=== PATIENT | female | born 1985 | race Caucasian/White ===

== ENCOUNTER 2020-08-23 10:32 | Emergency (ER) | payer OTHER, SELFPAY ==
[2020-08-23 11:44] VITALS: BP 122/72; PULSE 70; RESP 16; TEMP 37.3; O2SAT 99; BMI 29.2
[2020-08-23] MEDS: 0.9 % Sodium Chloride 1,000 ML 999 ML IVCONT ×2 (12:02→13:48)
[2020-08-23 12:11] LABS: MANUAL DIFF FLAG NO
[2020-08-23 12:15] LABS: Basophils Percent Auto 0.2 % (0-2); Eosinophils Percent Auto 0.1 % (0-4); Hematocrit 41.3 % (37-47); Hemoglobin 13.4 g/dl (12.0-16.0); Imm Gran Abs Auto 0.06 X10*3/uL (0.00-0.03); Imm Gran Pct Auto 0.5 % (0.0-0.4); Lymphocytes Absolute Auto 1.3 X10*3/uL (1.2-4.9); Lymphocytes Percent Auto 9.9 % (20-40); Mean Corpuscular HGB Conc 32.4 g/dl (31.0-35.0); Mean Corpuscular Hemoglobin 28.5 pg (27.0-33.0); Mean Corpuscular Volume 87.7 fL (80-98); Mean Platelet Volume 11.3 fL (9.4-12.3); Monocytes Absolute Auto 0.7 X10*3/uL (0.1-1.2); Monocytes Percent Auto 5.3 % (2-11); Neutrophils Absolute Auto 11.1 X10*3/uL (2.0-8.3); Platelet Count 270 X10*3/uL (160-400); Red Blood Count 4.71 X10*6/uL (4.20-5.50); Red Cell Distribution Width 14.1 % (11.0-16.0); White Blood Count 13.2 X10*3/uL (4.8-10.8)
[2020-08-23 12:40] LABS: Alanine Aminotransferase 12 U/L (0-31); Albumin Level 4.6 g/dL (3.5-5.0); Alkaline Phosphatase 43 U/L (39-117); Anion Gap 14 (12-20); Aspartate Amino Transferase 14 U/L (5-31); Bilirubin Direct 0.2 mg/dL (0.0-0.5); Bilirubin Total 0.5 mg/dL (0.0-1.0); Carbon Dioxide 25 mmol/L (22-29); Chloride 104 mmol/L (96-108); Creatinine Clr Calc Pharmacy 96.6; Estimated Glomerular Filt Rate > 60; Glucose Random 85 mg/dL (60-115); Lipase 21 U/L (8-78); Magnesium 2.2 mg/dL (1.6-2.6); Potassium 4.3 mmol/L (3.3-5.1); Sodium 139 mmol/L (135-145); Total Protein 7.1 g/dL (6.5-8.0)
--- NOTE | 2020-08-23 12:54 | ED_ITS ---
HPI - Nausea/Vomiting/Diarrhea General Chief complaint: Nausea/Vomiting/Diarrhea Stated complaint: dehydration? Time Seen by Provider: 08/23/20 11:28 Source: patient Mode of arrival: ambulatory Limitations: no limitations History of Present Illness HPI Narrative: 34 y/o female presenitng with nausea and vomiting for the last 2 days. She states her stomach started to feel off on Good Friday after she ate some fish and lobster. She had a poor appetitie over the weekend and then went to [facility] on Friday and ate a large meal. Since then she has not been able to tolerate anything by mouth, even water. She had a normal BM yesterday. She has some generalized upper abdominal discomfort when she is vomiting but no abdominal pain at rest. She denies blood on her vomitus, fever, chills, chest pain or SOB. She gets diaphoretic prior to vomiting. She states her LMP was end of June and there is a chance she could be . No vaginal bleeding or cramping. MD elicited complaint: nausea and vomiting Onset (ago): day(s) (2) Description of vomiting: food contents, watery and bilious Associated nausea: Yes Associated abdominal pain: Yes Location of pain: diffuse Pain consistency: intermittent Severity: mild Quality: aching Exacerbating factors: eating Relieving factors: vomiting Context: possible food poisoning Associated symptoms: diaphoresis, headaches, loss of appetite, malaise, nausea/vomiting and weakness Related Data Previous Rx's Medication Instructions Recorded cephalexin 500 mg PO TID 7 Days #21 cap 08/23/20 ondansetron 4 mg PO Q6H PRN #14 tab 08/23/20 Allergies Allergy/AdvReac Type Severity Reaction Status Date / Time No Known Allergies Allergy Unverified 02/03/20 15:28 [No Known Allergies*] Review of Systems Review of Systems: Constitutional: No Fever, No Chills ENT/Mouth: No sore throat, No Rhinorrhea, No Swallowing Difficulty Cardiovascular: No Chest Pain, No SOB, No Orthopnea, No Edema Respiratory: No Cough, No Sputum, No Wheezing, No dyspnea Gastrointestinal: + Nausea, + Vomiting, No Diarrhea, +abdominal Pain, No Hematochezia, No Melena Genitourinary: No Dysuria, No Urinary Frequency, No Hematuria Musculoskeletal: No joint pain, No Myalgias Skin: No Skin Lesions, No rash Neuro: + Weakness, No Numbness, No Dizziness, + Headache Psych: No Anxiety/Panic, No Depression Heme/Lymph: No Bruising, No Lymphadenopathy Endocrine: No Polyuria, No Polydipsia Gastrointestinal: Gastrointestinal: Reports nausea PMFSH Past Medical History Attestation statement: The following information was validated with the patient. Medical History Anxiety Surgical History (Updated 08/23/20 @ 11:49 by Sydni Ortega) H/O endoscopy History of biopsy Social History Social History Alcohol intake: never Smoking Status: Never smoker Last Used Substance: Hours (ago) Advance Directives: Yes Advance Directives Information Provided: No Advance Directives on File: No Physical Exam Vital Signs: Vital Signs: Last Vital Signs Temp 98.7 F 08/23/20 14:54 Pulse 76 08/23/20 14:54 Resp 18 08/23/20 14:54 BP 107/69 08/23/20 14:54 Pulse Ox 99 08/23/20 14:54 Body Mass Index 29.2 Appearance: Alert. Oriented X3. No acute distress. Eyes: Pupils equal, round and reactive to light. ENT: Pharynx normal. Neck: Normal inspection. Neck supple. CVS: Normal heart rate and rhythm. Pulses normal. Respiratory: No respiratory distress. Breath sounds normal. Abdomen: Obese, Soft with mild tenderness of epigastric areas to deep palpation. no rebound or guarding. +BS x4 Skin: Skin warm and dry. Normal skin color. Normal skin turgor. No rashes. Extremities: No lower extremity edema. Neuro: Oriented X 3. No motor deficit. No sensory deficit. Course Course Course Narrative: 34 y/o female presenting with N/V x2 days. Mild upper abdominal discomfort with vomiting but exam is reassuring. VS are within normal limits. Will hydrate and give IV zofran now for continued nausea. Will check test and labs to assess for metabolic derangements. Reevaluation(s) Reevaluation #1: Labs are reassuring. Mild leukocytosis, likely reactive from vomiting. Starting to feel better after IVF and zofran. Quant HCG is positive, consistent with 6-7 weeks gestation. She has no lower abdominal pain or vaginal bleeding. Will hold off on TV U/S at this time. Reevaluation #2: UA + for infection. Will treat with Keflex while awaiting culture. She is tolerting PO and is stable for d/c with antiemetics and antibiotics. She will follow up with her OB week and start taking vitamins. She was encouraged to come back to the ER if she develops lwoer abdominal pain, cramping vaginal bleeding or persistent vomiting. Patient agreeable with plan. MDM - Nausea/Vomiting/Diarrhea Lab Data Result diagrams: 08/23/20 12:08 08/23/20 12:08 Labs: Lab Results 08/23/20 08/23/20 08/23/20 Range/Units 12:08 12:08 15:08 WBC 13.2 H (4.8-10.8) X10*3/uL RBC 4.71 (4.20-5.50) X10*6/uL Hgb 13.4 (12.0-16.0) g/dl Hct 41.3 (37-47) % MCV 87.7 (80-98) fL MCH 28.5 (27.0-33.0) pg MCHC 32.4 (31.0-35.0) g/dl RDW 14.1 (11.0-16.0) % Plt Count 270 (160-400) X10*3/uL MPV 11.3 (9.4-12.3) fL Immature Gran % (Auto) 0.5 H (0.0-0.4) % Neut % (Auto) 84.0 H (45-73) % Lymph % (Auto) 9.9 L (20-40) % [place] % (Auto) 5.3 (2-11) % Eos % (Auto) 0.1 (0-4) % Baso % (Auto) 0.2 (0-2) % Lymph # (Auto) 1.3 (1.2-4.9) X10*3/uL [place] # (Auto) 0.7 (0.1-1.2) X10*3/uL Eos # (Auto) 0.0 (0.0-0.4) X10*3/uL Baso # (Auto) 0.0 (0.0-0.2) X10*3/uL Abs Immat Gran (auto) 0.06 H (0.00-0.03) X10*3/uL Absolute Neuts (auto) 11.1 H (2.0-8.3) X10*3/uL Absolute Nucleated RBC 0.000 (0.0-0.012) X10*3/uL Nucleated RBC % (auto) 0.0 (0.0-0.2) /100WBC Sodium 139 (135-145) mmol/L Potassium 4.3 (3.3-5.1) mmol/L Chloride 104 (96-108) mmol/L Carbon Dioxide 25 (22-29) mmol/L Anion Gap 14 (12-20) Creatinine 0.67 (0.5-1.4) mg/dL Estim Creat Clear Calc 96.6 Estimated GFR > 60 Random Glucose 85 (60-115) mg/dL Magnesium 2.2 (1.6-2.6) mg/dL Total Bilirubin 0.5 (0.0-1.0) mg/dL Direct Bilirubin 0.2 (0.0-0.5) mg/dL AST 14 (5-31) U/L ALT 12 (0-31) U/L Alkaline Phosphatase 43 (39-117) U/L Total Protein 7.1 (6.5-8.0) g/dL Albumin 4.6 (3.5-5.0) g/dL Lipase 21 (8-78) U/L Beta HCG, Quant 44412 mIU/mL Urine Color YELLOW Urine Appearance HAZY Urine pH 6.5 (5.0-8.0) Ur Specific [place] >= 1.030 H (1.005-1.025) Urine Protein TRACE (NEG-TRACE) MG/DL Urine Glucose (UA) NEG (NEG) MG/DL Urine Ketones >=80 (NEG) MG/DL Urine Blood 2+ H (NEG) Urine Nitrite NEG (NEG) Ur Leukocyte Esterase TRACE H (NEG) Urine RBC 30-49 H (0) /HPF Urine WBC 5-9 H (0-4) /HPF Ur Squamous Epith Cells 4+ /LPF Urine Bacteria 1+ /LPF Urine Test (NEGATIVE) 08/23/20 Range/Units 15:08 WBC (4.8-10.8) X10*3/uL RBC (4.20-5.50) X10*6/uL Hgb (12.0-16.0) g/dl Hct (37-47) % MCV (80-98) fL MCH (27.0-33.0) pg MCHC (31.0-35.0) g/dl RDW (11.0-16.0) % Plt Count (160-400) X10*3/uL MPV (9.4-12.3) fL Immature Gran % (Auto) (0.0-0.4) % Neut % (Auto) (45-73) % Lymph % (Auto) (20-40) % [place] % (Auto) (2-11) % Eos % (Auto) (0-4) % Baso % (Auto) (0-2) % Lymph # (Auto) (1.2-4.9) X10*3/uL [place] # (Auto) (0.1-1.2) X10*3/uL Eos # (Auto) (0.0-0.4) X10*3/uL Baso # (Auto) (0.0-0.2) X10*3/uL Abs Immat Gran (auto) (0.00-0.03) X10*3/uL Absolute Neuts (auto) (2.0-8.3) X10*3/uL Absolute Nucleated RBC (0.0-0.012) X10*3/uL Nucleated RBC % (auto) (0.0-0.2) /100WBC Sodium (135-145) mmol/L Potassium (3.3-5.1) mmol/L Chloride (96-108) mmol/L Carbon Dioxide (22-29) mmol/L Anion Gap (12-20) Creatinine (0.5-1.4) mg/dL Estim Creat Clear Calc Estimated GFR Random Glucose (60-115) mg/dL Magnesium (1.6-2.6) mg/dL Total Bilirubin (0.0-1.0) mg/dL Direct Bilirubin (0.0-0.5) mg/dL AST (5-31) U/L ALT (0-31) U/L Alkaline Phosphatase (39-117) U/L Total Protein (6.5-8.0) g/dL Albumin (3.5-5.0) g/dL Lipase (8-78) U/L Beta HCG, Quant mIU/mL Urine Color Urine Appearance Urine pH (5.0-8.0) Ur Specific [place] (1.005-1.025) Urine Protein (NEG-TRACE) MG/DL Urine Glucose (UA) (NEG) MG/DL Urine Ketones (NEG) MG/DL Urine Blood (NEG) Urine Nitrite (NEG) Ur Leukocyte Esterase (NEG) Urine RBC (0) /HPF Urine WBC (0-4) /HPF Ur Squamous Epith Cells /LPF Urine Bacteria /LPF Urine Test POSITIVE H (NEGATIVE) Discharge Plan Discharge Clinical Impression: Qualifiers: Weeks of gestation: less than 8 weeks Qualified Code(s): Z3A.01 - Less than 8 weeks gestation of UTI (urinary tract infection) Qualifiers: Urinary tract infection type: acute cystitis Hematuria presence: with hematuria Qualified Code(s): N30.01 - Acute cystitis with hematuria Patient Disposition: Home, Self-Care Instructions: (ED), Urinary Tract Infection in (ED) Additional Instructions: Your blood work showed you are - likely 6 to 7 weeks along. Your urine test showed signs of infection, so you are being started on an antibiotic until the culture returns. Stick to a bland diet. Try eating a saltine cracker before getting out of bed in the morning. Recommend taking Unisom (found over the counter) every night before bed. Take prescribed Zofran as needed for vomiting. Follow up with your OB this week. Start taking a vitamin. If you develop lower abdominal cramping, vaginal bleeding, or persistent vomiting come back to the ER for further evaluation. Prescriptions: New ondansetron 4 mg tablet,disintegrating 4 mg PO Q6H PRN (Reason: nausea and vomiting) Qty: 14 RF: 0 cephalexin 500 mg capsule 500 mg PO TID 7 Days Qty: 21 RF: 0
[2020-08-23] MEDS: ondansetron HCL 4 MG/2 ML VIAL IVPUSH (13:49)
[2020-08-23 13:51] VITALS: BP 106/67; PULSE 73; RESP 16; O2SAT 100
[2020-08-23 14:51] LABS: HCG Quantitative 30446 mIU/mL
[2020-08-23 14:54] VITALS: BP 107/69; PULSE 76; RESP 18; TEMP 37.1; O2SAT 99
[2020-08-23 15:22] LABS: Glucose Urine UA NEG (NEG); Leukocyte Esterase Urine TRACE (NEG); Nitrite Urine NEG (NEG); PH 6.5 (5.0-8.0); Specific Gravity - Urine >= 1.030 (1.005-1.025); UACC Culture Trigger YES; Urine Blood 2+ (NEG); Urine Ketones >=80 MG/DL (NEG); Urine Protein TRACE MG/DL (NEG-TRACE)
[2020-08-23 15:23] LABS: Appearance Urine HAZY; Color Urine YELLOW
[2020-08-23 15:26] LABS: UPreg QC Valid YES; Urine Pregnancy POSITIVE (NEGATIVE)
[2020-08-23 15:32] LABS: RBC Urine 30-49 /HPF (0)
[2020-08-23 15:33] LABS: Bacteria Urine 1+ /LPF; Squamous Epithelial Cell Urine 4+ /LPF
--- NOTE | 2020-08-23 15:45 | PC.NURSE ---
tolerating po well.
[2020-08-23 15:59] VITALS: BP 109/65; PULSE 86; RESP 18; TEMP 37.1; O2SAT 99
[2020-08-23 16:48] LABS: Blood Urea Nitrogen 11 mg/dL (9-16); Calcium 9.2 mg/dL (8.4-10.2)
== END 2020-08-23 16:18 | disposition home or self-care (01) ==
PROVIDERS: Physician Assistant; Emergency Provider Emergency Medicine Emergency Medical Services; PCP Internal Medicine
DX: O23.11 Infections of bladder in pregnancy, first trimester (principal); N30.01 Acute cystitis with hematuria; O09.521 Supervision of elderly multigravida, first trimester; Z3A.01 Less than 8 weeks gestation of pregnancy
CPT/HCPCS: 36415; 80048; 80076; 81001; 81003; 81025; 83690; 83735; 84702; 85025; 87086; 96360; 96361; 96374; 99284; 99285; J2405

== ENCOUNTER 2021-11-28 12:18 | Emergency (ER) | payer OTHER, SELFPAY ==
[2021-11-28 12:55] VITALS: BP 111/76; PULSE 82; RESP 16; TEMP 36.6; O2SAT 98; BMI 27.2
[2021-11-28 13:10] LABS: MANUAL DIFF FLAG NO
[2021-11-28 13:12] LABS: Appearance Urine HAZY; Color Urine YELLOW; Glucose Urine UA NEG (NEG); Leukocyte Esterase Urine NEG (NEG); Nitrite Urine NEG (NEG); PH 5.5 (5.0-8.0); Specific Gravity - Urine >= 1.030 (1.005-1.025); UACC Culture Trigger NO; Urine Blood 3+ (NEG); Urine Ketones >=80 MG/DL (NEG); Urine Protein TRACE MG/DL (NEG-TRACE)
[2021-11-28 13:13] LABS: Basophils Absolute Auto 0.1 X10*3/uL (0.0-0.2); Basophils Percent Auto 0.5 % (0-2); Eosinophils Absolute Auto 0.1 X10*3/uL (0.0-0.4); Eosinophils Percent Auto 0.5 % (0-4); Hematocrit 39.3 % (37.0-47.0); Hemoglobin 13.3 g/dl (12.0-16.0); Imm Gran Pct Auto 0.7 % (0.0-0.4); Lymphocytes Absolute Auto 1.8 X10*3/uL (1.2-4.9); Lymphocytes Percent Auto 12.4 % (20-40); Mean Corpuscular HGB Conc 33.8 g/dl (31.0-35.0); Mean Corpuscular Hemoglobin 28.6 pg (27.0-33.0); Mean Corpuscular Volume 84.5 fL (80.0-98.0); Mean Platelet Volume 10.6 fL (9.4-12.3); Monocytes Percent Auto 6.6 % (2-11); Neutrophils Absolute Auto 11.6 x10*3/uL (2.0-8.3); Neutrophils Percent Auto 79.3 % (45-73); Platelet Count 298 X10*3/uL (160-400); Red Blood Count 4.65 X10*6/uL (4.20-5.50); Red Cell Distribution Width 13.7 % (11.0-16.0); White Blood Count 14.6 X10*3/uL (4.8-10.8)
[2021-11-28 13:21] LABS: Squamous Epithelial Cell Urine 2+ /LPF
[2021-11-28 13:22] LABS: Bacteria Urine 1+ /LPF
[2021-11-28 13:23] LABS: WBC Urine 0-2 /HPF (0-4)
[2021-11-28 13:30] LABS: Anion Gap 14 (12-20); Blood Urea Nitrogen 12 mg/dL (9-16); Calcium 9.1 mg/dL (8.4-10.2); Carbon Dioxide 22 mmol/L (22-29); Chloride 102 mmol/L (96-108); Creatinine Clr Calc Pharmacy 82.8; Estimated Glomerular Filt Rate > 60; Glucose Random 184 mg/dL (60-115); Potassium 3.6 mmol/L (3.3-5.1); Sodium 134 mmol/L (135-145)
[2021-11-28 15:16] LABS: HCG Quantitative 51366 mIU/mL
== END 2021-11-28 18:29 | disposition left against medical advice (07) ==
PROVIDERS: Emergency Medicine; Emergency Provider Emergency Medicine; PCP Internal Medicine
DX: O21.9 Vomiting of pregnancy, unspecified (principal); Z3A.12 12 weeks gestation of pregnancy
CPT/HCPCS: 36415; 80048; 81001; 84702; 85025; 99282; 99283

== ENCOUNTER 2022-10-21 09:28 | Emergency (ER) | payer OTHER, SELFPAY ==
[2022-10-21 10:15] VITALS: BP 125/77; PULSE 76; RESP 16; TEMP 36.2; O2SAT 98; BMI 33.8
[2022-10-21 10:49] LABS: MANUAL DIFF FLAG NO
[2022-10-21 10:57] LABS: Basophils Absolute Auto 0.1 X10*3/uL (0.0-0.2); Basophils Percent Auto 0.8 % (0-2); Eosinophils Absolute Auto 0.2 X10*3/uL (0.0-0.4); Eosinophils Percent Auto 1.7 % (0-4); Hematocrit 43.1 % (37.0-47.0); Imm Gran Abs Auto 0.08 X10*3/uL (0.00-0.03); Imm Gran Pct Auto 0.7 % (0.0-0.4); Lymphocytes Absolute Auto 2.2 X10*3/uL (1.2-4.9); Lymphocytes Percent Auto 18.9 % (20-40); Mean Corpuscular HGB Conc 32.5 g/dl (31.0-35.0); Mean Corpuscular Hemoglobin 27.3 pg (27.0-33.0); Mean Platelet Volume 11.5 fL (9.4-12.3); Monocytes Absolute Auto 0.8 X10*3/uL (0.1-1.2); Monocytes Percent Auto 6.9 % (2-11); Neutrophils Absolute Auto 8.1 x10*3/uL (2.0-8.3); Platelet Count 302 X10*3/uL (160-400); Red Blood Count 5.13 X10*6/uL (4.20-5.50); White Blood Count 11.4 X10*3/uL (4.8-10.8)
[2022-10-21 11:00] LABS: Appearance Urine Cloudy; Color Urine Yellow; Glucose Urine UA Negative (Negative); Leukocyte Esterase Urine Moderate (2+) (Negative); Nitrite Urine Negative (Negative); PH 5.5 (5.0-9.0); UMIC TRIGGER UACC YES; Urine Blood Moderate (2+) (Negative); Urine Ketones Negative (Negative); Urine Protein Negative (Neg-Trace)
[2022-10-21 11:01] LABS: UPreg QC Valid YES; Urine Pregnancy NEGATIVE (NEGATIVE)
[2022-10-21 11:09] LABS: Alanine Aminotransferase 17 U/L (0-31); Albumin Level 4.2 g/dL (3.5-5.0); Alkaline Phosphatase 68 U/L (39-117); Anion Gap 11 (12-20); Aspartate Amino Transferase 17 U/L (5-31); Bilirubin Direct 0.1 mg/dL (0.0-0.5); Bilirubin Total 0.4 mg/dL (0.0-1.0); Blood Urea Nitrogen 10 mg/dL (9-16); Carbon Dioxide 24 mmol/L (22-29); Chloride 111 mmol/L (96-108); Creatinine Clr Calc Pharmacy 92.8; Estimated Glomerular Filt Rate > 60; Glucose Random 97 mg/dL (60-115); Lipase 26 U/L (8-78); Potassium 4.8 mmol/L (3.3-5.1); Sodium 141 mmol/L (135-145); Total Protein 6.8 g/dL (6.5-8.0)
[2022-10-21 11:39] LABS: Bacteria Urine 4+ (None Seen); Hyaline Casts Urine 0-2 /LPF (0-2); UACC Culture Trigger YES
== END 2022-10-21 19:27 | disposition left against medical advice (07) ==
PROVIDERS: Emergency Provider Emergency Medicine
DX: R10.12 Left upper quadrant pain (principal)
CPT/HCPCS: 36415; 80048; 80076; 81001; 81003; 81025; 83690; 85025; 87086; 99282; 99283

== ENCOUNTER 2025-04-27 13:07 | Emergency (ER) | payer OTHER, SELFPAY ==
--- NOTE | ~2025-04-27 | US_ITS ---
EXAMINATION: US RETROPERITONEAL LIMITED (RENAL ONLY) CLINICAL INFORMATION: Flank pain bilateral, hematuria. COMPARISON: CT exam of 10/07/2017. TECHNIQUE: Real-time imaging of the kidneys. FINDINGS: RIGHT KIDNEY: 9.4 x 4.2 x 4.1 cm (SAG x AP x TRV). The kidney is normal in size, contour, and echogenicity. Renal cortical thickness is normal. No calculi or suspicious focal parenchymal lesions. No hydronephrosis. Midpole tiny cyst with posterior calcification measuring 5 x 3 x 5 mm. LEFT KIDNEY: 11.5 x 5.0 x 5.0 cm (SAG x AP x TRV). The kidney is normal in size, contour, and echogenicity. Renal cortical thickness is normal. No calculi or focal parenchymal lesions. No hydronephrosis. US/US renal BI IMPRESSION: No hydronephrosis, mass, or calculus of either kidney. Electronically signed by: Jose Maria Gordon MD 04/27/2025 02:08 PM MICHELLE
--- NOTE | ~2025-04-27 | XR_ITS ---
CLINICAL HISTORY: L LOWER L-S TENDERNESS 3 views lumbar spine Comparison: None provided Findings: Normal vertebral body alignment. No acute fractures or dislocation. No significant degenerative change. IMPRESSION: No acute findings. This document has been electronically signed by: Kristin Rooney MD on 04/27/2025 18:07:10
--- NOTE | ~2025-04-27 | XR_ITS ---
CLINICAL HISTORY: L flank pain 1 view abdomen Comparison: None provided Findings: Nonobstructive bowel gas pattern. No abnormal calcifications. No acute fractures. IMPRESSION: Nonobstructive bowel gas pattern. This document has been electronically signed by: Kristin Rooney MD on 04/27/2025 18:05:06
[2025-04-27 13:14] VITALS: BP 125/76; PULSE 82; RESP 20; TEMP 36.2; O2SAT 97; BMI 30.8
--- NOTE | 2025-04-27 13:14 | ED_ITS ---
HPI - General Adult General Chief complaint: Abdominal Pain Stated complaint: General Medical Time Seen by Provider: 04/27/25 16:24 History of Present Illness ED Provider: Marco Antonio Morris MD HPI narrative: Mandy is 39 years old she complains of several weeks left low back lumbosacral region pain now of the past few days radiating to the left lower quadrant no burning dysuria but feels there was blood in the urine on urine dip a PCP office. No history of kidney stones denies sudden onset or severe thunderclap pain or heavy vaginal bleeding. No diarrhea no prior surgical or significant gynecologic tested Related Data Previous Rx's ?Medication ?Instructions ?Recorded cephalexin 500 mg capsule 500 mg PO TID 7 days #21 cap s 08/23/20 ondansetron 4 mg disintegrating 4 mg PO Q6H PRN nausea and 08/23/20 tablet vomiting #14 tabs Allergies Allergy/AdvReac Type Severity Reaction Status Date / Time No Known Allergies (No Known Allergy Verified 04/27/25 13:17 Allergies*) [facility] Past Medical History Medical History Anxiety Surgical History (Updated 08/23/20 @ 11:49 by Sydni Ortega) History of biopsy H/O endoscopy Social History Social History Alcohol intake: never Smoked in Last 30 Days: No Use of substances other than those prescribed or required for medical reasons: Yes Substance Use Type: Marijuana Substance Use Frequency: Chronic Longstanding Advance Directives: No Advance Directives Information Provided: No Do you have a plan to hurt others: No Plan Patient : No Physical Exam ED Exam Exam: EXAM: Gen: Alert, awake, well appearing, well hydrated. Head: Atraumatic Eyes: Anicteric, Normal conjunctiva. ENT: Moist mucosa, no pallor. ? Neck: Supple. Skin: ?No observable rash or bruising on exposed or examined skin Respiratory: Breathing comfortably, No distress.Clear to auscultation bilaterally, symmetric chest expansion, No wheeze, rales, ronchi. Cardiovascular: Regular rate and rhythm. No murmurs or rub. Well perfused periphery, warm extremities. No edema. ? Abdominal: No focal tenderness. Soft, no objective distension. No palpable masses or obvious organomegaly. ?No guarding, no rebound tenderness or other peritoneal findings. : No flank tenderness. Neuro: Alert. Gross movement of all extremities intact. ? Psych: Calm. Cooperative. MSK: Mild lumbosacral tenderness no bruising Vital signs: See flowsheet Vital Signs: Vital Signs - 24 hr 04/27/25 16:51 04/27/25 18:43 Temperature 98.8 F 98.8 F Pulse Rate 86 86 Respiratory Rate 16 16 Blood Pressure 129/81 129/81 Pulse Oximetry 99 99 Oxygen Delivery Method Room Air Room Air BMI result Body Mass Index 30.8 Course Course Course Narrative: This is an RME: Additional HPI, ROS, PE not included below will be deferred to primary provider. RME assessment and note performed by: Maria Guadalupe Aragon PA-C This is a 80-oclg-cak-female, with a hx of anxiety, interstitial cystitis, who presents to the ER with a complaint of nausea and left sided flank pain. Also endorsing hematuria on urine dipstick. Endorsing urinary frequency - however reports this is chronic for her from her IC. No hx of kidney stones Plan: Labs, UA, renal US Medications Administered Discontinued Medications Generic Name Dose Route Start Last Admin Trade Name Freq PRN Reason Stop Dose Admin Sodium Chloride 1,000 mls @ 999 mls/hr 04/27/25 17:15 04/27/25 18:42 Ns IV 04/27/25 18:15 Infused .Q1H1M BRIGIDA Infusion Ketorolac Tromethamine 15 mg 04/27/25 17:13 04/27/25 17:45 Ketorolac Tromethamine 15 Mg/Ml Vial IVPUSH 04/27/25 17:14 15 mg ONCE ONE Administration Procedures Procedure Narrative Procedure Narrative: EMERGENCY ULTLRASOUND INTERPRETATION-Limited pelvic [This study was ordered, performed, and interpreted by myself. The study reveals: Impression: Unremarkable non uterus [Indication: Uterus: Normal-appearing endometrial stripe. Perhaps trace pelvic fluid Free Fluid: Trace Adnexa: No large or prominent adnexal masses Quant HCG: Negative Performed by: Marco Antonio Morris MD Images were stored CPT: 34908] Medical Decision Making Medical Decision Making MDM Narrative: Medical Decision Making: Healthy 39-year-old female with left low back pain going out few weeks no distinct injury. No neurologic symptoms. Some radiation of the left lower quadrant though her abdomen is not significantly tender. Reassuring renal ultrasound and limited transabdominal gynecologic ultrasound without obvious masses or significant pelvic free fluid. Doubt diverticulitis. Doubt kidney stone though she has some blood cells in the urinalysis there was no hydronephrosis and the symptomatology does not suggest renal colic. KUB no large stone no bowel obstruction or free air. Preliminary Favored Differential Diagnosis: Musculoskeletal pain, renal colic, constipation, UTI among additional considered etiologies Testing Interpreted Independently: ?See below for details Radiology or Lab testing Results Reviewed: ?See below for details Consults: ?See below for details Independent Historians/External Chart Reviews: ?See below for details Social Determinants of Health Impacting MDM/Planning: ?See below for details Lab Data 04/27/25 13:53 04/27/25 13:53 Labs: Lab Results 04/27/25 Range/Units 13:53 WBC 9.6 (4.8-10.8) X10*3/uL RBC 4.92 (4.20-5.50) X10*6/uL Hgb 13.9 (12.0-16.0) g/dl Hct 41.8 (37.0-47.0) % MCV 85.0 (80.0-98.0) fL MCH 28.3 (27.0-33.0) pg MCHC 33.3 (31.0-35.0) g/dl RDW 14.1 (11.0-16.0) % Plt Count 291 (160-400) X10*3/uL MPV 11.0 (9.4-12.3) fL Immature Gran % (Auto) 0.4 (0.0-0.4) % Neut % (Auto) 63.2 (45-73) % Lymph % (Auto) 26.1 (20-40) % [place] % (Auto) 6.3 (2-11) % Eos % (Auto) 3.1 (0-4) % Baso % (Auto) 0.9 (0-2) % Lymph # (Auto) 2.5 (1.2-4.9) X10*3/uL [place] # (Auto) 0.6 (0.1-1.2) X10*3/uL Eos # (Auto) 0.3 (0.0-0.4) X10*3/uL Baso # (Auto) 0.1 (0.0-0.2) X10*3/uL Abs Immat Gran (auto) 0.04 H (0.00-0.03) X10*3/uL Absolute Neuts (auto) 6.1 (2.0-8.3) x10*3/uL Absolute Nucleated RBC 0.000 (0.0-0.012) X10*3/uL Nucleated RBC % (auto) 0.0 (0.0-0.2) /100WBC Sodium 138 (135-145) mmol/L Potassium 4.0 (3.3-5.1) mmol/L Chloride 107 (96-108) mmol/L Carbon Dioxide 25 (22-29) mmol/L Anion Gap 10 L (12-20) BUN 15 (9-16) mg/dL Creatinine 0.64 (0.5-1.4) mg/dL Estim Creat Clear Calc 98.9 Estimated GFR > 60 Random Glucose 106 (60-115) mg/dL Calcium 9.2 (8.4-10.2) mg/dL Total Bilirubin 0.3 (0.0-1.0) mg/dL Direct Bilirubin 0.1 (0.0-0.5) mg/dL AST 22 (5-31) U/L ALT 20 (0-31) U/L Alkaline Phosphatase 50 (39-117) U/L Total Protein 7.0 (6.5-8.0) g/dL Albumin 4.7 (3.5-5.0) g/dL Beta HCG, Quant < 2 mIU/mL Urine Color Yellow Urine Appearance Clear Urine pH 6.0 (5.0-9.0) Ur Specific [place] 1.020 (1.005-1.025) Urine Protein Negative (Neg-Trace) mg/dL Urine Glucose (UA) Negative (Negative) mg/dL Urine Ketones Negative (Negative) mg/dL Urine Blood Large (3+) H (Negative) Urine Nitrite Negative (Negative) Ur Leukocyte Esterase Negative (Negative) Urine RBC >20 H (0-2) /HPF Urine WBC 0-5 (0-5) /HPF Ur Squamous Epith Cells 3-5 (0-2) /HPF Urine Bacteria Trace (None Seen) Hyaline Casts 0-2 (0-2) /LPF Discharge Plan Discharge Clinical Impression: Low back pain, Hematuria Patient Disposition: Home, Self-Care Instructions: Hematuria (ED), Acute Low Back Pain (ED) Additional Instructions: Mandy [place] tor[place] were evaluated in the emergency department for left low back pain radiating to the front. You had a renal and bladder ultrasound as well as a limited pelvic ultrasound no emergent findings were seen. You had some red blood cells in your urine but no signs of urinary tract infection. You had a lumbosacral and abdominal x-rays that were reassuring without obvious bony abnormalities. The cause of your pain has not yet been fully elucidated you may need further testing with your primary doctor. You can try topical analgesics such as diclofenac gel or lidocaine patches, heating pad to the low back Tylenol and limited NSAID use like ibuprofen or naproxen Your blood counts were reassuring and your test was negative. Prescriptions: No Action ondansetron 4 mg tablet,disintegrating 4 mg PO Q6H PRN (Reason: nausea and vomiting) Qty: 14 0RF cephalexin 500 mg capsule 500 mg PO TID 7 Days Qty: 21 0RF Interventions: ED Discharge Assessment Last Done: 04/27/25 18:43 Discharge Date/Time: 04/27/25 19:07 Print Language: Salvadorean
[2025-04-27 13:58] LABS: MANUAL DIFF FLAG NO
[2025-04-27 14:01] LABS: Appearance Urine Clear; Glucose Urine UA Negative (Negative); PH 6.0 (5.0-9.0); Specific Gravity - Urine 1.020 (1.005-1.025); UMIC TRIGGER UACC YES
[2025-04-27 14:03] LABS: Hematocrit 41.8 % (37.0-47.0); Hemoglobin 13.9 g/dl (12.0-16.0); Imm Gran Abs Auto 0.04 X10*3/uL (0.00-0.03); Imm Gran Pct Auto 0.4 % (0.0-0.4); Lymphocytes Absolute Auto 2.5 X10*3/uL (1.2-4.9); Mean Corpuscular HGB Conc 33.3 g/dl (31.0-35.0); Mean Corpuscular Hemoglobin 28.3 pg (27.0-33.0); Mean Corpuscular Volume 85.0 fL (80.0-98.0); NRBC Abs Auto 0.000 X10*3/uL (0.0-0.012); NRBC Pct Auto 0.0 /100WBC (0.0-0.2); Platelet Count 291 X10*3/uL (160-400); Red Blood Count 4.92 X10*6/uL (4.20-5.50); White Blood Count 9.6 X10*3/uL (4.8-10.8)
[2025-04-27 14:20] LABS: Alanine Aminotransferase 20 U/L (0-31); Albumin Level 4.7 g/dL (3.5-5.0); Alkaline Phosphatase 50 U/L (39-117); Anion Gap 10 (12-20); Aspartate Amino Transferase 22 U/L (5-31); Blood Urea Nitrogen 15 mg/dL (9-16); Calcium 9.2 mg/dL (8.4-10.2); Carbon Dioxide 25 mmol/L (22-29); Chloride 107 mmol/L (96-108); Creatinine Clr Calc Pharmacy 98.9; Estimated Glomerular Filt Rate > 60; Potassium 4.0 mmol/L (3.3-5.1); Sodium 138 mmol/L (135-145); Total Protein 7.0 g/dL (6.5-8.0)
[2025-04-27 16:51] VITALS: BP 129/81; PULSE 86; RESP 16; TEMP 37.1; O2SAT 99
--- NOTE | 2025-04-27 17:03 | PC.NURSE ---
Pt here w/ c/o L back/flank pain since 03/18. Pt was seen by pcp and w/u for uti w/ neg results. Today w/ nausea and worsening pain. Pt denies fevers but states today w/ chills.
[2025-04-27 18:43] VITALS: BP 129/81; PULSE 86; RESP 16; TEMP 37.1; O2SAT 99
--- OUTSIDE RECORDS SUMMARY | 2025-04-27 21:39 | XMS_ITS | Clinical Summary ---
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 Spit, do not swallow. Do not eat or drink for 30 minutes following use. 473 mL 4 Active Additional Information Patient not taking.Reported on 04/06/2024 acetaminophen (Tylenol) 500 MG tablet Take 2 Tablets by mouth every 8 hours. 3 Active acetaminophen (Tylenol) 325 MG tablet Take 650 mg by mouth. 3 Active amoxicillin (Amoxil) 500 MG capsule TAKE 1 CAPSULE (500 MG) BY MOUTH EVERY 8 HOURS FOR 10 DAYS 2 Active benzonatate (Tessalon) 100 MG capsule TAKE 1 CAPSULE BY MOUTH 3 TIMES DAILY NEEDED FOR COUGH FOR UP TO 5 DAYS. 3 Active cyclobenzaprine (Flexeril) 10 MG tablet TAKE 1 TABLET BY MOUTH 3 TIMES DAILY NEEDED FOR MUSCLE SPASM. 3 Active famotidine (Pepcid) 20 MG tablet Take 20 mg by mouth 2 times daily. 3 Active levonorgestrel- ethinyl estradiol (Aviane, Alesse, Lessina) 0.1-20 MG-MCG tablet Take 1 tablet by mouth Once per day. 3 Active Vienva 0.1-20 MG-MCG tablet Take 1 tablet by mouth Once per day. Active metroNIDAZOLE (Flagyl) 500 MG tablet Take 500 mg by mouth every 12 (twelve) hours. 3 Active ondansetron (Zofran) 4 MG tablet Take 4 mg by mouth every 8 (eight) hours if needed. 3 Active Active Problems Problem Noted Date Diagnosed Date Rh D negative blood type 04/06/2024 Hyperemesis gravidarum 03/29/2024 Class 1 obesity 03/29/2024 GERD (gastroesophageal reflux disease) Hemorrhoids 03/02/2024 Straining with stools 03/02/2024 Dysphagia 03/02/2024 Dental caries 07/28/2023 Impacted third molar tooth 07/28/2023 Periodontal disease 07/28/2023 Overweight (BMI 25.0-29.9) 05/25/2018 Interstitial cystitis 10/09/2015 Overview (04/06/2024): Chronic microhematuria Chronic abdominal pain 08/31/2015 Overview (04/06/2024): Following with urology- [facility] Backache 06/04/2012 Social History Tobacco Use Types Packs/Day Years Used Date Smoking Tobacco: Former Cigarettes Passive Smoke Exposure: Never Smokeless Tobacco: Former Tobacco Cessation:Counseling Given: No Alcohol Use Standard Drinks/Week Comments Defer 0 (1 standard drink = 0.6 oz pur e alcohol) Comments Unknown Sex and Gender Information Value Date Recorded Sex Assigned at Female 03/18/2022 10:16 AM EDT Legal Sex Female 10:16 AM EDT Gender Identity Female 03/18/2022 10:16 AM EDT Sexual Orientation Choose not to disclose 2021 10:16 AM EDT Plan of Treatment Health Maintenance Due Date Last Done Comments Depression Screening 1984 HIV Screening 1984 SDOH Screening 1984 Disability Screening 1984 Alcohol/Substance Use Screening 1996 Family Planning (PISQ) 09/25/1999 HPV Vaccines (1 - 3-dose series) 09/25/1999 Hepatitis C Screening 2002 Hepatitis B Vaccines (1 of 3 - 19+ 3-dose series) 09/25/2003 Pap Smear 2005 Dental Oral Exam 02/21/2011 08/21/2010, 10/26/2008 Dental Prophylaxis 02/21/2011 08/21/2010, 12/19/2009 Dental X-Ray: Full Mouth 08/22/2013 08/21/2010, 08/18 Cervical Cancer Screening 2014 HPV/Cotest 2014 Mammogram 2024 COVID-19 Vaccine ( season) 2025 06/20/2021, 05/30/2021 Influenza Vaccine (#1) 2025 3, 04/06/2020, 05/25/2018, Additional history exists Tobacco Screening 04/06/2025 04/06/2024 Dental X-Ray: Bitewings 04/07/2025 04/06/20 24, 01/08/2024, 02/14/2022, Additional history exists DTaP/Tdap/Td Vaccines (3 - Td or Tdap) 04/29/2032 04/29/2022, 02/27/2012 Zoster Vaccines (1 of 2) 2034 RSV Patients and Patients Aged 60 years or older (1 - 1-dose 75+ series) 09/25/2059 HIB Vaccines Aged Out No longer eligi ble based on patient's age to complete this topic Hepatitis A Vaccines Aged Out No long er eligible based on patient's age to complete this topic IPV Vaccines Aged Out No longer eligi ble based on patient's age to complete this topic Meningococcal B Vaccine Aged Out No l onger eligible based on patient's age to complete this topic Meningococcal Vaccine Aged Out No echo preston eligible based on patient's age to complete this topic Pneumococcal Vaccine: Pediatrics (0 to 5 Years) and At-Risk Patients (6 to 49) Years Aged Out No longer eligible based on patient's age to complete this topic RSV under 20 months Aged Out No longe r eligible based on patient's age to complete this topic Rotavirus Vaccines Aged Out No longer eligible based on patient's age to complete this topic Procedures Procedure Name Priority Date/Time Associated Diagnosis Comments BITEWING - SINGLE RADIOGRAPHIC IMAGE Routine 04/06/2024 11:30 AM EST Dental caries Dental abscess Tooth impaction PROPHYLAXIS - ADULT Routine 08/21/2010 1 2:00 AM EDT PANORAMIC RADIOGRAPHIC IMAGE Routine 08/21/2010 12:00 AM EDT PERIODIC ORAL EVALUATION - ESTABLISHED PATIENT Routine 08/21/2010 12:00 AM EDT from Last 3 Months or Most Recently Relevant to Health Maintenance Insurance [place] STAND ADULT DENTAL-[facility] MEDICAID STAND ADULT
--- OUTSIDE RECORDS SUMMARY | 2025-04-27 21:39 | XMS_ITS ---
Author Name [facility] Organization Unknown Care Team Organization Name Specialty Phone Email Start Date End Da te [facility] Debbie Humphrey Primary Care 01/23/2023 [facility] Kristel Muhammad Primary Care 03/26/20222023
--- OUTSIDE RECORDS SUMMARY | 2025-04-27 21:39 | XMS_ITS | Clinical Summary ---
Author Organization [facility] Address [address] [place] [address] Phone Care Team Providers Care Automatic Data Processing Planner Name Role Phone Debbie Humphrey MD Primary Care Provider [phone] Allergies Active Allergy Reactions Criticality Noted Date Comments Bee Pollen 10/09/2015 Other 10/09/2015 Seasonal Allergies Medications levonorgestrel -ethinyl estradiol (Vienva) 0.1-20 mg-mcg per tablet Take 1 Tablet by mouth daily. 10/24/19 23 Active cyclobenzaprin e (FLEXERIL) 5 mg tabletIndicati ons:muscle spasm Take 1 tablet (5 mg total) by mouth 2 (two) times a day if needed for muscle spasms. 30 tablet 04/18/20 25 026 Active omeprazole OTC (PriLOSEC OTC) 20 mg EC tabletIndicati ons:Bilateral flank pain,Hematuria , unspecified type Take 1 tablet (20 mg total) by mouth 1 (one) time each day. Do not crush, chew, or split. 30 tablet 11 04/20/20 25 026 Active naproxen (NAPROSYN) 500 mg tabletIndicati ons:Bilateral flank pain,Hematuria , unspecified type Take 1 tablet (500 mg total) by mouth 2 (two) times a day if needed for mild pain (pain). 60 tablet 5 04/20/20 25 026 Active acetaminophen (TYLENOL) 500 mg tablet Take 2 Tablets by mouth every 8 hours. 12/29 025 Discontinued fluticasone propionate (FLONASE) 50 mcg/actuation nasal spray Administer 1 spray into each nostril 2 (two) times a day. Shake gently. Before first use, prime pump. After use, clean tip and replace cap. 16 g 12/10/19 025 Discontinued ibuprofen (ADVIL,MOTRIN) 600 mg tablet Take 1 tablet (600 mg total) by mouth 3 (three) times a day if needed for mild pain (pain). 60 tablet 04/18/20 025 Discontinued omeprazole OTC (PriLOSEC OTC) 20 mg EC tablet Take 1 tablet (20 mg total) by mouth 1 (one) time each day. Do not crush, chew, or split. 04/18/20 025 Discontinued(Re order) Active Problems Problem Noted Date Diagnosed Date COVID-19 12/14/2024 Overview (12/14/2024): 12/09/24 positive Class 1 obesity 03/29/2024 Hyperemesis gravidarum 03/29/2024 Difficulty swallowing 03/02/2024 Dysphagia 03/02/2024 GERD (gastroesophageal reflux disease) Hemorrhoids 03/02/2024 Straining with stools 03/02/2024 Dental caries 07/28/2023 Impacted third molar tooth 07/28/2023 Periodontal disease 07/28/2023 Overweight (BMI 25.0-29.9) 05/25/2018 Interstitial cystitis 10/09/2015 Overview (03/02/2024): Chronic microhematuria Chronic abdominal pain 08/31/2015 Overview (03/02/2024): Following with urology- [facility] Encounters Date Type Department Care Team Description 04/25/2025 Telephone Adult Medicine [address] [phone] Anne Sales NP 04/20/2025 Telephone Adult Medicine [address] [phone] Debbie Humphrey MD 04/18/2025 2:30 PM EST Office Visit Adult [address] [phone] Anne Sales, CARROLL Acute left-sided low back pain without sciatica (Primary Dx); Hematuria, unspecified type 04/18/2025 Results Follow-Up [address] [phone] Anne Sales NP 04/18/2025 Telephone Adult [address] [phone] Debbie Humphrey MD from Last 3 Months Immunizations Immunization Administration Dates Next Due Influenza Quadravalent, MDCK , 0.5ml, preservative free (Flucelvax) 6mo and older 04/06/2020,05/25/2018 Influenza Quadravalent, MDCK , 0.5ml, with preservative (Flucelvax) 6mo and older 06/07/2022 Influenza Quadrivalent, 0.5m l, preservative free (Fluarix; FluLaval; Fluzone) ages 6mo and older (Afluria) 3yo and older 06/07/2022 Influenza trivalent, with pr eservative (Fluzone; Afluria) 6mo and older 02/27/2012 GoGarden (ages 12 & older) TORRES S-CoV-2 COVID-19, mRNA, LNP-S, narciso-sucrose, preservative free 06/20/2021 Tdap Tetanus diptheria acell ular pertussis (Boostrix; Adacel) 7yo and older 04/29/2022,02/27/2012 Surgical History Surgery Date Site/Laterality Comments TONSILLECTOMY PROCEDURE: HISTORICAL TONSILLECTOMY ESOPHAGOGASTRODUODENOSCOPY PROCEDURE: IA EGD TRANSORAL BIOPSY SINGLE/MULTIPLE; COMMENT: Performed on February 02 noted for erythema and erosions OTHER SURGICAL HISTORY 04/2020 PROCEDURE: HYSTEROSCOPY, SURGICAL/SAMPLING; COMMENT: polypectomy Medical History Medical History Date Comments Chronic abdominal pain 08/31/2015 DX:Chroni c abdominal pain; [facility] cystitis 10/09/2015 DX:Interst itial cystitis GERD (gastroesophageal reflux disease) DX:GERD (gastroesophageal reflux disease) Dysphagia DX:Dysphagia Difficulty swallowing DX:Difficu lty swallowing Hemorrhoids DX:Hemorrhoids Hemorrhoids DX:Hemorrhoids Straining with stools DX:Straini ng with stools Family History Medical History Relation Name Comments Thyroid disease Aunt maternal type?? Hypertension Father COPD (+smoker/p ainting) Heart attack Maternal Grandfather Diabetes Maternal Grandmother HTN Hyperlipidemia Mother osteoporosis No Known Problems Paternal Grandfather Diabetes Paternal Grandmother Diabetes Uncle paternal Relation Name Status Comments Aunt maternal Father Alive Maternal Grandfather Maternal Grandmother Alive Mother Alive Paternal Grandfather Paternal Grandmother Alive Uncle paternal Alive Social History Tobacco Use Types Packs/Day Years Used Date Smoking Tobacco: Former Smokeless Tobacco: Current Last attempted to quit: 03/19/2010 Tobacco Cessation:Ready to Q uit: Not Asked; Counseling Given: Not Answered Alcohol Use Standard Drinks/Week Comments Yes 0 (1 standard drink = 0.6 oz pur e alcohol) Comments No Sex and Gender Information Value Date Recorded Sex Assigned at Not on file Legal Sex Female 9:07 AM EST Gender Identity Not on file Sexual Orientation Not on file Last Filed Vital Signs Vital Sign Reading Time Taken Comments Blood Pressure 101/71 04/18/2025 2:31 PM EST Pulse 65 04/18/2025 2:31 PM EST Temperature 36.3 C (97.3 F) 04/18/2025 2:31 PM EST Respiratory Rate - - Oxygen Saturation 99% 04/18/2025 2:31 PM EST Inhaled Oxygen Concentration - - Weight 70.3 kg (155 lb) 04/18/2025 2:31 PM EST Height 151.8 cm (4' 11.75 ) 04/18/2025 2:[address] Body Mass Index 30.53 04/18/2025 2:31 PM EST Plan of Treatment Health Maintenance Due Date Last Done Comments Breast Cancer Screening 1984 Hepatitis B Vaccines (1 of 3 - 19+ 3-dose series) 09/25/2003 HPV Vaccines (1 - 3-dose SCDM series) 09/25/2011 HIV Screening 04/21/2022 Hepatitis C Screening 04/21/2022 Social Influencers of Health Screening 04/21/2022 Cholesterol Screening (Lipid Panel) 05/25/2023 05/25/2018 Depression Screening 05/19/2024 02/26/2024 COVID-19 Vaccine (3 - season) 2025 06/20/2021, 05/30/2021 Influenza Vaccine (#1) 2025 3, 06/07/2022, 04/06/2020, Additional history exists Cervical Cancer Screening: HPV 07/19/2026 07/19/2021 DTaP,Tdap,and Td Vaccines (3 - Td or Tdap) 04/29/2032 04/29/2022, 02/27/2012 RSV Immunization Adult Patients (1 - 1-dose 75+ series) 09/25/2059 HIB Vaccines Aged Out No longer eligi ble based on patient's age to complete this topic Hepatitis A Vaccines Aged Out No long er eligible based on patient's age to complete this topic IPV Vaccines Aged Out No longer eligi ble based on patient's age to complete this topic MMR Vaccines Aged Out No longer eligi ble based on patient's age to complete this topic Meningococcal ACWY Vaccine Aged Out N o longer eligible based on patient's age to complete this topic Meningococcal B Vaccine Aged Out No l onger eligible based on patient's age to complete this topic Pneumococcal Vaccine: Pediatrics (0 to 5 Years) and At-Risk Patients (6 to 49 Years) Aged Out No longer eligible based on patient's age to complete this topic RSV Immunization Patients Under 20 months Aged Out No longer eligible based on patient's age to complete this topic Varicella Vaccines Aged Out No longer eligible based on patient's age to complete this topic Procedures Procedure Name Priority Date/Time Associated Diagnosis Comments MOBLEY URINE CULTURE TUBE Routine 04/18/2025 3:15 PM EST Acute left-sided low back pain without sciatica Hematuria, unspecified type URINALYSIS WITH REFLEX MICROSCOPIC AND CULTURE Routine 04/18/2025 3:15 PM EST Acute left-sided low back pain without sciatica Hematuria, unspecified type URINALYSIS WITH REFLEX MICROSCOPIC AND CULTURE Routine 04/18/2025 3:15 PM EST Acute left-sided low back pain without sciatica Hematuria, unspecified type POC URINE AUTO W/O MICRO Routine 04/18/2025 2:51 PM EST Acute left-sided low back pain without sciatica Hematuria, unspecified type HM DEPRESSION SCREENING Routine 02/26/2024 HM HPV Routine 07/19/2021 LIPID PANEL Routine 05/25/2018 from Last 3 Months or Most Recently Relevant to Health Maintenance Results * (ABNORMAL) Urinalysis with reflex microscopic and culture (04/18/2025 3:15 PM EST) Specific Sinclair Urine 1.021 1.003 - 1.030 LAB URINALYSIS - AUTOMATED METHOD 04/18/2025 4:57 PM [facility] pH, Urine 5.0 5.0 - 8.0 pH LAB URINALYSIS - AUTOMATED METHOD 04/18/2025 4:57 PM [facility] Leukocytes, Urine Negative Negative LAB URINALYSIS - AUTOMATED METHOD 04/18/2025 4:57 PM [facility] Nitrite, Urine Negative Negative LAB URINALYSIS - AUTOMATED METHOD 04/18/2025 4:57 PM [facility] Protein, Urine Negative <=Trace mg/dL LAB URINALYSIS - AUTOMATED METHOD 04/18/2025 4:57 PM [facility] Glucose, Urine Negative Negative mg/dL LAB URINALYSIS - AUTOMATED METHOD 04/18/2025 4:57 PM [facility] Ketones, Urine Negative Negative mg/dL LAB URINALYSIS - AUTOMATED METHOD 04/18/2025 4:57 PM [facility] Urobilinogen, Urine 0.2 0.2 - 1.0 mg/dL LAB URINALYSIS - AUTOMATED METHOD 04/18/2025 4:57 PM [facility] Bilirubin, Urine Negative Negative LAB URINALYSIS - AUTOMATED METHOD 04/18/2025 4:57 PM [facility] Blood, Urine Large(A) Negative LAB URINALYSIS - AUTOMATED METHOD 04/18/2025 4:57 PM [facility] RBC, Urine 8.0(H) 0 - 4 /HPF 04/18/2025 4:57 PM [facility] WBC, Urine 4.0 0 - 4 /HPF 04/18/2025 4:57 PM [facility] Squamous Epithelial, Urine 25 0 - 60 /LPF 04/18/2025 4:57 PM [facility] Bacteria, Urine Negative Negative /HPF 04/18/2025 4:57 PM [facility] Hyaline Casts, Urine 10.0(H) 0 - 3 /LPF 04/18/2025 4:57 PM [facility] Urine Urine specimen obtained by clean catch procedure / Unknown Non-blood Collection / Unknown 04/18/2025 3:15 PM EST 04/18/2025 3:15 PM EST Anne Sales REEL AND REWINDER OPERATOR LAB URINE ORDERABLES Final R esult Performing Organization Address [facility]/ZIP Co de Phone Number [facility] [address] [place] [address], [place] [phone] * Mobley urine culture tube (04/18/2025 3:15 PM EST) Extra Tube Hold for add-ons. 04/18/2025 5:01 PM EST [facility] Comment:Auto resulted. Urine Urine specimen obtained by clean catch procedure / Unknown Non-blood Collection / Unknown 04/18/2025 3:15 PM EST 04/18/2025 3:15 PM EST Anne Sales REEL AND REWINDER OPERATOR LAB URINE ORDERABLES Final R esult [facility] [address] [place] [address], [place] [phone] * (ABNORMAL) POC Urine Auto W/O Micro (04/18/2025 2:51 PM EST) [facility] Leukocytes UA POC Negative Negative Nitrite UA POC Negative Negative Urobilinogen UA POC Negative Negative Protein UA POC Negative Negative PH UA POC 5.0 5.0 - 9.0 Blood UA POC Positive(A) Negative, Trace Specific Sinclair UA POC 1.025 1.001 - 1.035 Ketones UA POC 1+(A) Negative Bilirubin UA POC Negative Negative Glucose UA POC Normal Normal, Trace Urine Urine specimen obtained by clean catch procedure / Unknown 04/18/2025 2:51 PM EST Anne Sales REEL AND REWINDER OPERATOR POINT OF CARE TEST ENTER/BRIDGER T ORDERABLES Final Result * Depression Screening (02/26/2024) [facility] Depression Screening Abstracted Historical Provider HEALTH MAINTENANCE Final Result * Cervical Cancer Screening: HPV (07/19/2021) [facility] Cervical Cancer Screening: HPV No interpreta tion,abstr acted Historical Provider HEALTH MAINTENANCE Final Result * (ABNORMAL) Lipid panel (05/25/2018) [facility] LDL/HDL Ratio 3 0 - 4 Triglycerides 71 0 - 150 mg/dL Cholesterol 195 0 - 200 mg/dL HDL 64 >=40 mg/dL LDL Cholesterol 117(A) 0 - 100 mg/dL Blood Venous blood specimen / Unknown Historical Provider LAB BLOOD ORDERABLES Samira l Result from Last 3 Months or Most Recently Relevant to Health Maintenance Insurance [employer] Care Teams Automatic Data Processing Planner Relationship Specialty Start Date End Date Debbie Humphrey MD [address] [place] [address] PCP - General Internal Medicine 05/25/15
--- OUTSIDE RECORDS SUMMARY | 2025-04-27 21:39 | XMS_ITS | Encounter Summary ---
Author Organization [employer] Address [address] [place] [address] Care Team Providers Care Sales And Service Consultant Name Role Phone Debbie Humphrey MD Primary Care Provider [phone] Encounter Details Date Type Department Care Team ([facility] st Contact Info) Description 04/18/2025 Results Follow-Up Adult Medicine [facility] [address] [place], [place] [phone] Anne Sales NP [address], [place] Social History Tobacco Use Types Packs/Day Years Used Date Smoking Tobacco: Former Smokeless Tobacco: Current Last attempted to quit: 03/19/2010 Alcohol Use Standard Drinks/Week Comments Yes 0 (1 standard drink = 0.6 oz pur e alcohol) Comments No Sex and Gender Information Value Date Recorded Sex Assigned at Not on file Legal Sex Female 9:07 AM EST Gender Identity Not on file Sexual Orientation Not on file documented as of this encounter Plan of Treatment Not on file documented as of this encounter Visit Diagnoses Not on filedocumented in this encounter Care Teams Sales And Service Consultant Relationship Specialty Start Date End Date Debbie Humphrey MD [address] [place], [place] PCP - General Internal Medicine 05/25/15 documented as of this encounter
--- OUTSIDE RECORDS SUMMARY | 2025-04-27 21:39 | XMS_ITS | Encounter Summary ---
Author Organization [employer] Address [address] [place] [address] Care Team Providers Care Global Marketing Intern Name Role Phone Debbie Humphrey MD Primary Care Provider [phone] Reason for Visit * Reason Onset Date Comments Results 04/20/2025 rx needed 04/20/2025 Encounter Details Date Type Department Care Team (Late st Contact Info) Description 04/20/2025 Telephone Adult Medicine [facility] [address] [place], [place] [phone] Debbie Humphrey MD [address], [place] Social History Tobacco Use Types Packs/Day [...] on file documented as of this encounter Progress Notes * Anne Sales NP - 04/26/2025 7:33 PM EST Spoke to patient. see TM from 05/06/2024 at 420pm * Uriah Diaz MA - 04/25/2025 1:44 PM EST Please review and advise on message below. ALAINA 04/18/25 * Jackeline Rizzo - 04/20/2025 10:53 AM EST Inform patient: ANY URGENT OR ABNORMAL RESULTS WIILL RESULT IN A CALL BACK TO THE PATIENT XIN. Type of test: :Urine Test Date test was performed: 04/18/2025 Where was the test performed: [address] [place] [id number] Who ordered this test?: Keturah Sales Is the doctor here today?: yes Can the message wait until the doctor returns?: no. Patient is still waiting for a response from PCP or PA. Antibiotic was suppose to be sent to pharmacy, no Rx was submit, patient is frustrated IF PATIENT'S PCP IS NOT IN INSTRUCT PATIENT THAT THEY WILL RECEIVE A CALL BACK WHEN THE PCP IS IN THE OFFICE NEXT. documented in this encounter Plan of Treatment Not on file documented as of this encounter Visit Diagnoses Not on filedocumented in this encounter Care Teams Global Marketing Intern Relationship Specialty Start Date End Date Debbie Humphrey MD [address] [place] [phone] PCP - General Internal Medicine 05/25/15 documented as of this encounter
--- OUTSIDE RECORDS SUMMARY | 2025-04-27 21:39 | XMS_ITS | Patient Health Record ---
Author Organization [employer] [facility] Address [address] [place] [address] Care Team Providers Care Fruit Sorter Name Role Phone ALESSANDRO HARDWICK MD Primary Care Provider KACEY Lock [phone] Reason For Referral No Information Social History Tobacco Use: Social History Observation Description Date Details (start date - stop date) Former Smoker NA - NA Social History Tobacco Use: Social Info Question Answer Notes Smoking Are you a: former smoker How long has it been since you last smoked? 5-10 years Additional Details Category Social Info Options Details General Occupation: massage therapi st alcohol use: yes occ drug use: yes marijuana Coffee/Tea/Soda: yes 1 cup of coffee daily, no tea, soda rarely Marital Status single smokers in household yes quit 2009 Problems Problem Type SNOMED Code ICD Code Onset Dates Problem Status W/U Status Risk Notes Problem Raised antinuclear antibody (562188735) Positive MASON (antinuclear antibody) (R76.8) Active confirmed Problem Tendonitis (97073585) Tendonitis (M77.9) Active confirmed Plan Of Treatment No Information Insurance Providers Payer Name Payer Address Payer Phone Subscriber Number Group Number Insured Name Patient Relationship to Insured Coverage Start Date Coverage End Date [facility] [address] [address] [place] [address] [phone] [id number] JENNIFER PRICE Self - patient is the insured Medical (General) History Medical History History ICD Code allergy Surgical History Surgery Date(Month/Year) endometriosis 2009 tonsils lipoma removal 2014 Interstitial cystitis 2014
--- OUTSIDE RECORDS SUMMARY | 2025-04-27 21:39 | XMS_ITS | Encounter Summary ---
Author Organization [facility] Address [address] [place] [address] Care Team Providers Care Outside Sales Engineer Name Role Phone Debbie Humphrey MD Primary Care Provider [phone] Reason for Referral * Consultation (Routine) - Closed Specialty Diagnoses / Procedures Referred By Contac t Referred To Contact Urology Diagnoses Hematuria, unspecified type Anne Sales NP [address] [place] [address] Phone: tel: fax: [facility] [address] [address] Phone: tel: fax: Referral ID Status Reason Start Date Expiration Date V isits Requested Visits Authorized [id number] Closed Specialty Services Required 04/26/2025 04/26/2026 1 1 Reason for Visit * Reason Onset Date Comments UTI Symptoms 04/25/2025 Results 04/25/2025 Encounter Details Date Type Department Care Team (Late st Contact Info) Description 04/25/2025 Telephone Adult Medicine [facility] [address] [place], [place] [phone] Anne Sales NP [address], [place] Social History Tobacco Use Types Packs/Day [...] Notes * Anne Sales NP - 04/26/2025 4:19 PM EST Patient reports that she is having ongoing abdominal pain and may have passed small like color clots that is on usual for her. She is unsure if this is from her vagina or bladder. She is scheduled for renal ultrasound on . I recommend that patient reach out to her BELT WORKER to do further workup as this could be a just gynecological issue. Last UA showed hematuria with no bacterial growth I will repeat UA I will also refer patient to urologist. Patient agree with plan. * Selina Colvin MA - 04/25/2025 11:39 AM EST Patient is returning a missed call from 8:54 am today. * Galina Rodriguez RN - 04/25/2025 8:53 AM EST Pt has not had improvement of flank/ back pain, was seen 04/18 no culture results in epic . Was advised if culture negative provider would order u/s pt asking for advice * Lyubov Cueto - 04/25/2025 8:35 AM EST Patient call requires triage: Symptoms patient is presenting: patient was seen on 04/18, Keturah Sales, checked for UTI, still waiting on results, see portal messages. Continued back pain, provider had mentioned an US on 04/18. Patient had discomfort on the weekend on left side. Please advise. How long has patient had these symptoms?: one week For ALL patients calling to schedule any appointment (routine, sick visit, follow up, consult, etc.) in the outpatient setting please ask the following questions: Do you have fever of higher than 101, sore throat with difficulty swallowing or severe shortness ofbreath? no If YES to any of these above symptoms, send a message to triage and do not book. Red dot. If no, an audio or video visit should be booked. Have you had close contact with someone with Coronavirus in the last 14 days? no Have you traveled abroad? no Have you traveled recently to another state outside of [place], [place], [place], [place], [place], [place], [place]? no o If yes, did you quarantine for 14 days or have a negative covid test? no If yes to any of the above, patient is not to be scheduled in office until after 14 day quarantine or negative covid test. If pain or injury related was it due to an accident at work or from a motor vehicle accident? If yes, date of accident/Injury: No If yes, gather 3rd constitution party insurance information Third Republican Information: not applicable PCP: Debbie Humphrey MD Payor: [employer] PLAN / Plan: [email or web address] MEDICAID / Product Type: *No Product type* / documented in this encounter Plan of Treatment Scheduled Orders Name Type Priority Associated Diagnoses Orde r Schedule Urinalysis with reflex microscopic and culture Lab Routine Hematuria, unspecified type Expected: 04/26/2025, Expires: 10/25/2025 Scheduled Referrals Name Type Priority Associated Diagnoses Order Schedule Ambulatory referral to Urology Outpatient Referral Routine Hematuria, unspecified type 1 Occurrences starting 04/26/2025 until 04/26/2026 documented as of this encounter Visit Diagnoses Diagnosis Hematuria, unspecified type- Primary documented in this encounter Care Teams Outside Sales Engineer Relationship Specialty Start Date End Date Debbie Humphrey MD [address] [place] [address] PCP - General Internal Medicine 05/25/15 documented as of this encounter
== END 2025-04-27 19:07 | disposition home or self-care (01) ==
PROVIDERS: Physician Assistant Medical; Emergency Provider Emergency Medicine; PCP Internal Medicine
DX: M54.50 Low back pain, unspecified (principal); R31.9 Hematuria, unspecified
CPT/HCPCS: 36415; 72100; 74018; 76775; 76815; 80048; 80076; 81001; 81003; 84702; 85025; 96361; 96374; 99284; J1885

== ENCOUNTER → 2025-04-27 13:22 | Outpatient (BNV) | payer OTHER, SELFPAY | PROVIDERS: PCP Internal Medicine; Visit Provider Radiology Diagnostic Radiology | DX: R10.A1 Flank pain, right side (principal); R10.A2 Flank pain, left side; R31.9 Hematuria, unspecified; M54.50 Low back pain, unspecified | CPT/HCPCS: 72100; 74018; 76775 ==